=== PATIENT | female | born 1960 | race Caucasian/White ===

== ENCOUNTER 2020-03-21 19:56 | Inpatient (IN) | payer OTHER ==
[~2020-03-21] VITALS: Ht 160 cm; Wt 112.0 kg
[2020-03-21 22:00] VITALS: BP 140/80
[2020-03-22] MEDS ORDERED: PAIN RELIEF325 MG PO (00:30)
[2020-03-22] MEDS ORDERED: FLORANEX TABLE1 EACH PO (00:31)
[2020-03-22] MEDS ORDERED: NORVASC5 M1 PO (00:32)
[2020-03-22] MEDS ORDERED: BUSPIRONE HCL10 MG PO (00:32)
[2020-03-22] MEDS ORDERED: CARAFATE1 GM (00:34)
[2020-03-22] MEDS ORDERED: DORYX MPC120 MG PO (00:36)
[2020-03-22] MEDS ORDERED: DULOXETINE HCL60 MG PO (00:37)
[2020-03-22] MEDS ORDERED: LASIX 40 MG TAB40 MG (00:37)
[2020-03-22] MEDS ORDERED: LEVO-T100 MCG PO (00:38)
[2020-03-22] MEDS ORDERED: KLOR-CON 10 ER10 MEQ PO (00:39)
[2020-03-22] MEDS ORDERED: [UNRECOGNIZED DRUG - OTHER] PO (00:40)
[2020-03-22] MEDS ORDERED: SALONPAS1 EACH (00:40)
[2020-03-22] MEDS ORDERED: NORCO 5-325 TA1 EAC1 PO (00:41)
[2020-03-22] MEDS ORDERED: PHENERGAN 25 MG25 MG PO (00:43)
[2020-03-22] MEDS ORDERED: AMBIEN CR12.5 MG PO (00:44)
[2020-03-22] MEDS ORDERED: CARVEDILOL12.5 MG PO (01:15)
--- NOTE | 2020-03-22 02:32 | NUR ---
PATIENT CAME TO [facility] FROM IN [place], [place]. SHE ARRIVED BY EMS AMBULANCE AND WAS SCREENED FOR COVID 19 THRU OUR ED. SHE ARRIVED BY STRETCHER TO [facility] UNIT AT 2019. PATIENT TRANSFERRED ON FOOT FROM STRETCHER TO THE BED. PATIENT WAS ORIENTED TO ROOM AND VITAL SIGNS AND ASSESSMENT OBTAINED WELL CONSENTS SIGNED. PATIENT HAS MEDICARE/MEDICAID FOR INSURANCE. SHE IS A/0X4. SHE IS A 59 Y/O FEMALE THAT IS WELL GROOMED. SHE ARRIVED IN DISPOSABLE SCRUBS FROM HOSPITAL. PT PRESENTS TO US WITH SI. SHE STATES SHE HAS BEEN OBSESSING OVER THE COVID 19 VIRUS AND SO FEARFUL AND AFRAID TO GET IT. SHE HAS NOT BEEN EATING WELL FOR PAST MONTH AND IS AFRAID TO LEAVE HER HOME. HER BOYFRIEND RECENTLY BROKE UP WITH HER BUT REMAINS IN HER LIFE TO HELP SUPPORT HER THRU THIS TIME. I DID ALLOW HER TO CALL HIM TO LET HIM KNOW SHE WAS HERE. SHE ASKED ME TO CALL HIM AND GIVE HIM THE CODE SO HE CAN GET INFORMATION AND TALK WITH HER. PATIENT IS ALERT. SHE WAS CRYING AND HAD FEARFUL LOOK OF SCARE ON HER FACE WHEN SHE ARRIVED. SHE DID CALM DOWN I CALMLY SPOKE WITH HER AND LET HER KNOW THAT WE ARE HERE TO HELP HER THRU THIS TIME AND KEEP HER SAFE. SHE SAT ON THE SIDE OF THE BED DURING ASSESSMENT AND WAS RUBBING HER FACE UP AND DOWN WITH HER HANDS AT TIMES AND/OR WRINGING HER HANDS WE SPOKE. CLEAR SIGNS OF ANXIETY. PATIENT STATES SHE HAD BEEN LIVING IN AN ASSISTED LIVING FACILITY IN [place] A LITTLE OVER A YEAR AGO. SHE STATES SHE FELT SAFE THERE. SHE SAID SHE IS UNABLE TO LIVE ON HER OWN AND IS ON DISABILITY. SHE SAYS SHE IS NOT GOOD AT TAKING HER MEDS CORRECTLY. SHE GETS IMPULSIVE AT TIMES AND OVER TAKES THEM. SHE STATES THAT THRU HER FEAR OF COVID19 THAT SHE HAS BEEN UNABLE TO SLEEP. SHE STATES SHE FEELS LIKE SHE IS GOING TO SNAP IF SHE DOESN'T GET SOME SLEEP. SHE DECIDED TO TAKE HER AMBIAN IN THE MORNING AND THE NIGHT TO SEE IF THIS WOULD HELP HER SLEEP. SHE DID THIS FOR A WEEK AND STATES SHE TOOK A TOTAL OF 30 PILLS. SHE STATES IT DID NOT HELP HER SLEEP BUT DID CAUSE HER VISUAL HALLUCINATIONS WHICH SCARED HER. [facility]- AN ADMIT. SHE WAS D/C'D AND RETURNED AGAIN TODAY, THE BECAUSE SHE FELT LIKE SHE WAS GOING TO HARM HERSELF. SHE STATES THAT HER GOAL IS TO BE ABLE TO STAY IN AN ASSISTED LIVING OR FACILITY THAT DOSES OUT HER MEDS TO HER. SHE DOES SEEM TO HAVE A DEPENDENT PERSONALITY. SHE STATES WHEN SHE WAS IN [place] SHE STARTED DATING RELATIONSHIP WITH QIAN HERE IN [place]. THEY HAD BEEN LIFELONG FRIENDS. HE HAD HER COUSIN AND HER COUSIN HAD AND THIS IS WHEN THEY GOT TOGETHER. HE TOLD HER RECENTLY THAT HE IS UNABLE TO HELP HER AND HAS CHANGED THE RELATIONSHIP STATUS. PATIENT AMBULATES WITH A CANE. SHE HAS HAD MULTIPLE SURGERIES ON HER KNEES WHICH WERE REPAIRED AND THEN GREW MRSA FROM THE REPAIRS. SHE HAS SCARS ON BOTH KNEES FROM SURGERIES. SHE DOES HAVE KNEE PAIN. PT HAS SCAR DOWN STERNUM FROM MITRAL VALVE REPAIR IN 2016 IN WHICH IVF FILTER WAS PLACED. PATIENT HAS HISTORY OF HTN, HYPOTHYROIDISM, DIVERTICULITIS/ULCER. PT HAS HAD PSYCH HX OF ANXIETY, DEPRESSION, AND SUICIDAL ATTEMPT WITH KLONOPIN OD IN 2009. PATIENT IS OBESE. SHE IS CONTINENT OF BOWEL AND BLADDER. SHE WEARS DEPENDS. NO UTI S/S OF FREQUENCY, URGENCY, OR BURNING ON URINATION OR BLOOD IN URINE. PATIENT HAD DIARHEA FOR LAST 2 DAYS. SHE HAS NOT BEEN EATING WELL AND MAKING POOR FOOD CHOICES. PATIENT HAS EDEMA 2+ IN LEGS AND FEET. SHE STATES HER LOWER LEGS AND ANKLES HAVE ALWAYS BEEN BIG. SHE HAS ACTIVE BOWEL SOUNDS ALL 4 QUADS OF ABDOMEN, ABDOMEN SOFT/NONTENDER. HEART SOUNDS ARE REGULAR S1,S2. PATIENT HAS MULTIPLE BRUISES ON BILATERAL ARMS FROM IV ATTEMPTS AT PREVIOUS HOSPITAL. SHE HAS SMALL TATTOOS ON LEFT HAND AND LEFT KNEE. SKIN IS DRY AND INTACT. PATIENT HAS UPPER AND LOWER DENTURES. NO GLASSES, NO HEARING AIDS. PATIENT'S BELONGINGS AT NURSE STATION TO INVENTORY. PATIENT IS ALLERGIC TO FLAGYL WITH N/V REACTION. PATIENT WAS GIVEN NEW ONE TIME ORDER OF SEROQUEL 50MG PO TO HELP HER SLEEP TONIGHT. SHE REFUSED ANY OFFERINGS OF FOOD TONIGHT BUT DID REQUEST ICEWATER WHICH WAS OBTAINED FOR HER. PATIENT STATES SHE DOES NOT WISH TO HURT HERSELF. SHE JUST WANTS SLEEP. SHE HAS CALMED AND IS COOPERATIVE. SHE SIGNED HER CONSENTS VOLUNTEERILY. FREQUENT ROUNDING TO CHECK ON PATIENT STATUS. SHE DENIES SI/HI/AVH AT THIS TIME. WILL CONTINUE TO MONITOR.
[2020-03-22 08:21] VITALS: BP 144/84
--- NOTE | 2020-03-22 10:19 | NUR ---
Alert and orientated X4. States she took extra Ambien d/t insomnia and also took methamphetamine in her tea prior to admission. Denies SI/HI at this time. Refusing to come to dining room for breakfast and group initially stating her mind is all mixed up and going round and round. Informed that behavior would get her placed on room lockout. Did come to day room for breakfast and activities and was appropriate. Seems anxious at times and at other times is calm and interactive. Breath sounds clear. Regular HR auscultated. Color pink with brisk capillary refill and palpable peripheral pulses. Independent with voiding. Active bowel sounds over large, soft rounded abdomen. States last BM was yesterday. Ambulates with regular, steady gait with cane. Ate a few bites of breakfast and was compliant with meds.
--- NOTE | 2020-03-22 17:12 | NUR ---
LEO and Dr quijano met with pt . LEO coompleted the intake assessment and TP. Pt described abusing prescriptions drugs and drinking meth. Pt wants to live in [place] or [facility] in [place]. She would like to be close to her friends in [place]. Pt [place].
[2020-03-22 19:35] VITALS: BP 99/77
--- NOTE | 2020-03-22 23:55 | NUR ---
Care of patient assumed at 1915. Patient is lying in bed. pleasant upon approach. Reports ongoing insomnia which has her depressed. denies any pain. Reports having racing thoughts and VH when she tries to sleep. Denies any current hallucinations. Denies current SI/HI. HS reg, BS active x 4, LS CTA. Patient does call for help when confused male peer enters her room. Does well to recognize that the peer is confused and there is no malign intent. Complliant with HS meds.
[2020-03-23 06:00] LABS: CALCIUM 8.7 mg/dL (8.5-10.1); CREATININE 1.1 mg/dL (0.6-1.0); POTASSIUM 4.2 mmol/L (3.5-5.1)
[2020-03-23 07:53] VITALS: BP 121/76
--- NOTE | 2020-03-23 10:36 | NUR ---
PATIENT WAS IN BED WHEN CARE ASSUMED THIS MORNING. WHEN AWOKEN, SHE CAME OUT FOR BREAKFAST, APPETITE FAIR, "MY APPETITE IS BETTER TODAY" SHE STATES SHE HASN'T BEEN EATING WELL SINCE SHE "TOOK LOTS OF AMBEIN AND OTHER MEDICINES". LCTA IN ALL LOBES, BS+X4, ABD SOFT, NON-TENDER TO TOUCH. PATIENT TOOK ALL MEDICATION WHOLE WITHOUT DIFFICULTY. SHE DENIES SUICIDAL/HOMICIDAL IDEATION, SHE RATED BOTH DEPRESSION/ANXIETY 8/10. PATIENT DENIES AUDITORY/VISUAL HALLUCINATION, SHE DENIES HAVING PHYSICAL PAIN. PATIENT STATES SHE IS WORRIED BECAUSE HER FAMILY DOES NOT WANT HER ANYMORE, "THEY WANT ME TO GO TO ASSISTED LIVING". MOOD IS DEPRESSED, AFFECT IS ANXIOUS. PATIENT CURRENTLY IN BED RESTING. NO SIGN OF ACUTE DISTRESS NOTED AT THIS TIME, WILL MONITOR FOR SAFETY.
--- NOTE | 2020-03-23 12:53 | NUR ---
Sw sent referrals to the following [facility], [facility], [facility], and [facility] for possible placement
--- NOTE | 2020-03-23 19:21 | NUR ---
Care of patient assumed at 1915. Patient is sitting in the day room. Complains of a headache 4/10. APAP given and pain reduced to 2/10 after 30 minutes. Patient reports still being depressed r/t not getting enough sleep. Denies SI/HI. Says anxiety is "not too bad" but is visibly anxious. Talks on the phone for a long period, then receives HS meds. Retires to bed shortly after.
[2020-03-23 20:00] VITALS: BP 131/76
--- NOTE | 2020-03-23 22:28 | H ---
[facility] [place] [place] [address] HISTORY AND PHYSICAL Name: MADDY BYERS Room #: 524B-B ADM IN M.R.#: [id number] Admission: 03/21/20 Attend Phys: Ismael Motta DO Discharge: Date of : 56 Report #: [id number] THIS REPORT FOR: cc: ROBIN - No family physician/PCP FAM - No family physician/PCP Ismael Motta DO ~ CC: Ismael Motta [facility] physician/PCP DATE OF SERVICE: 03/21/2020 INPATIENT PSYCHIATRIC EVALUATION ATTENDING PHYSICIAN: Ismael Motta DO MOLD SANDER: Ismael Dickey MD REASON FOR ADMISSION: Suicidal ideation with plan to overdose, recent and intentional overdose on 30 tablets of Ambien, where she was admitted on March 19, discharged on March 20 at [facility]. SOURCES OF INFORMATION: [facility] Health screening, records from the [facility], interview with the patient, chart review from [facility]. HISTORY OF PRESENT ILLNESS: This is a 59-year-old obese female who was transferred from the [facility]. She presented there on the morning of March 21 with suicidal ideation. From multiple sources, the patient presented to the ED with suicidal ideation with plan and intent to overdose. She stated, "I just want to go and I want everything to be over." She reported the only reason she has not followed through with the suicide plan today is she did not want her boyfriend to find her . The patient has been living in approximately 2 months in [place], [place] with a 74-year-old male. Prior to this, she had lived for 16 months in an assisted living facility in [place]. Her duration of residence in [place] was 12 years. As stated already she was discharged from the medical floor at [facility] on March 20 after being admitted due to the Ambien overdose, where she had become delirious. The patient had a previous suicide attempt via taking 50 tablets of clonazepam in 2009. She reports that her current crisis is different than the break in 2009. She acknowledged to experience auditory and visual hallucinations. She reports using methamphetamine after she ran out of the Ambien. She reports being hyperfocused on COVID-19 issues and believing that people are out to get her. She admitted to meth use on March 17. CURRENT MEDICATIONS: That were at [facility] were acetaminophen, acidophilus, Ambien, amlodipine, Bactrim, buspirone, Carafate, carvedilol, [facility] [address] [place] [address] HISTORY AND PHYSICAL Name: MADDY BYERS Room #: [facility] ADM IN M.R.#: [id number] Admission: 03/21/20 Attend Phys: Ismael Motta DO Discharge: Date of : 56 Report #: [id number] doxycycline, duloxetine, Lasix, levothyroxine, [place] 5/325, potassium chloride, promethazine, Salonpas patch, Theratrum vitamin. ALLERGIES: FLAGYL causes nausea, vomiting. ADDITIONAL INFORMATION: She reports psychiatric review of systems, depression, lasting 2 weeks. She reports prominent anhedonia, ideation, she wanted to take all the pills she has, which are maintenance drugs. She states she sees 2 primary care physicians in [place], [place]. She denies domestic abuse. Denies unexpected weight loss of over 20 pounds in the last 6 months. Denies recent falls. LABORATORY DATA: From the ER, urinalysis was grossly negative except for 1+ bacteria, 1+ leukocytes, 1+ blood, rare squamous cells. CBC done on March 21, white count 7.7, H and H 14.7 and 45.7, platelet count 206. Sodium 142 and potassium 3.3, improved to 3.5 after replacement. Chloride 105, bicarbonate 24, BUN 17, creatinine 1.2, albumin 3.4, total protein 7.8, calcium 8.8, total bilirubin 0.6, alkaline phosphatase 162, ALT 30, AST 26. UDS was positive for benzodiazepines and methamphetamine. On interview today, educational history reports associate's degree. She reports being raised in [place]. SOCIAL HISTORY: She reports and once. She has 2 children in her early 40s son and daughter which have no relationship with her. She denies criminal justice history. Denied legal problems. Denies history of service. She reports on her past drug abuse history. Denies smoking. Denies alcohol. Reports abuse of prescription pain killers, use of cocaine in the past. MENTAL STATUS EXAMINATION: This is a well-developed, disheveled, obese female, appearing stated age. Attention fair. Concentration fair. The patient remarks, "I keep thinking about things, I cannot stay focused." Some psychomotor agitation. Denied psychomotor retardation. Denied suicidal intent. Endorsed morbid thinking. Denied homicidal intent or plan. Denied auditory, visual, or tactile hallucinations. Memory not formally tested today on purpose. Interestingly, the patient does discuss having a DCN number being enrolled in [place] Medicaid, so there is some suggestion that she is looking for Haldol. TSH 1.71, vitamin B12 level 670. PAST MEDICAL HISTORY: Includes coronary artery disease. She has had a valve replacement with subsequent MRSA infection, it is about 2-1/2 years ago. She has had bilateral knee arthroplasty with subsequent MRSA infection. She states she has "spacers," history of osteoarthritis, history of hypokalemia. [facility] [address] [place] [address] HISTORY AND PHYSICAL Name: MADDY BYERS Room #: 524B-B ADM IN M.R.#: [id number] Admission: 03/21/20 Attend Phys: Ismael Motta DO Discharge: Date of : 56 Report #: [id number] REVIEW OF SYSTEMS: CONSTITUTIONAL: Denies fever, chills, or change in appetite. HENT: Denies congestion, headache, or dizziness. RESPIRATORY: Denies cough, orthopnea, or shortness of breath. CARDIOVASCULAR: Denies chest pain, edema or palpitations. GASTROINTESTINAL: Denies abdominal pain, constipation or diarrhea. GENITOURINARY: Denies dysuria, frequency or hematuria. MUSCULOSKELETAL: Denies muscle pain, joint pain, or joint swelling. SKIN: Denies rash, bruising, or abrasion. NEURO/PSYCH: Denies weakness or tingling. ENDOCRINE: Denies flushing, intolerance to cold or heat. HEME/LYMPH: Denies easy bruising, anemia, or blood clots. FORMULATION: A 59-year-old obese female presenting status post intentional overdose, unclear if it was suicide versus just trying to take pain away. The patient currently is in relationship strife with her boyfriend. DIAGNOSES: At this time, unspecified depression, substance use disorder for methamphetamines, moderate degree. Numerous medical comorbidities, obesity, coronary artery disease, osteoarthritis, status post surgical wound infection. PLAN: Evaluate, stabilize, and obtain collateral. With regard to medications, we will start risperidone 0.5 mg p.o. b.i.d. for clarity of thought. She is on potassium chloride, increased to 40 mEq from 20 mEq b.i.d. by hospitalist. We will start clonazepam scheduled 0.5 mg at 9 a.m., 3 p.m. and 9:00 p.m. temporarily to relieve her anxiety. I did give her a one-time 1 mg a day vitamin. 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 BuSpar increased from 10 b.i.d. to 10 three times a day, this was a home med. Amlodipine 5 mg p.o. daily for hypertension with parameters, Lasix 40 mg p.o. twice per day at 8 a.m. and 3 p.m. and Coreg 12.5 mg b.i.d. with parameters, levothyroxine 100 mcg p.o. daily, lidocaine patch. ESTIMATED LENGTH OF STAY: 10-14 days. STRENGTHS: She is insured. WEAKNESSES: Lack of support. She is out of her normal geography, some dependent personality features. At least 60 minutes spent on this case. <ELECTRONICALLY SIGNED> By: Ismael Motta DO 03/23/20 2228 1520 [id number] Ismael Motta DO /nt
[2020-03-24 08:53] VITALS: BP 103/71
--- NOTE | 2020-03-24 09:34 | EKG ---
[facility] [place] [address] [place] [address] ELECTROCARDIOGRAM REPORT Name: MADDY BYERS Room #: 524B-B ADM IN M.R.#: [id number] Admission: 03/21/20 Attend Phys: Ismael Motta DO Discharge: Date of : 56 Report #: [id number] THIS REPORT FOR: cc: FAM - No family physician/PCP FAM - No family physician/PCP Earl Gomez MD ~ THIS REPORT FOR: //name// [facility] Test Date: 2020-03-23 Test Time: 17:48:11 Pat Name: MADDY BYERS Department: Room: 52 B Gender: F Motel Manager: Sha LINN : 1960 Requested By: Ismael Motta Order Number: [id number] MD: Earl Gomez Measurements Intervals [employer] Rate: 86 P: 45 SD: 126 QRS: -50 QRSD: 91 T: 126 QT: 364 QTc: 436 Interpretive Statements Sinus rhythm Left atrial enlargement Abnormal R-wave progression, late transition Inferior infarct, old Lateral leads are also involved No previous ECG available for comparison Electronically Signed On 03-24-2020 9:32:11 CDT by Earl Gomez [email or web address] <ELECTRONICALLY SIGNED> By: Earl Gomez MD 03/24/20 0932 1748 1748 Earl Gomez MD /EPI
[2020-03-24 12:59] VITALS: BP 103/71
--- NOTE | 2020-03-24 15:28 | NUR ---
PATIENT HAS BEEN UP, AND OUT ON THE UNIT, AMBULATE WITH ASSIST OF ROLLER WALKER, GAIT STEADY. PATIENT IS ALERT, AND ORIENTED X 3-4, ABLE TO MAKE NEED KNOWN. PATIENT TAKES ALL MEDICATION WHOLE WITHOUT DIFFICULTY. SHE IS EATING MEALS, AND DRINKNG FLUID WELL. PATIENT DENIES SUCIDAL/HOMICIDAL IDEATION. SHE RATED BOTH DEPRESSION/ANXIETY 7/10. AFFECT IS SAD, MOOD DEPRESSED. PATIENT DENIES AUDITORY/ VISUAL HALLUCINATION. NO C/O DIARRHEA TODAY, PATIENT INTERACTING WELL WITH SELECT PEER. NO SIGN OF ACUTE DISTRESS NOTED AT THIS TIME, WILL MONITOR FOR SAFETY.
--- NOTE | 2020-03-24 17:30 | NUR ---
Patient attended group. Group was focused on identifying strengths. Patient was engaged but had to be redirected often. She was focused on talking about a lost relationship due to her relapse.
--- NOTE | 2020-03-24 19:15 | NUR ---
Care of patient assumed at 1914. Patient is in day room watching a movie with peers. A/O x 4. Says that today has been a better day and that she kept herself busy watching movies. Denies SI/HI. Denies pain. HS reg, BS active x 4, LS CTA with diminished LL. Compliant with HS meds. About 20 minutes after HS meds, patient c/o nervousness and palpitations. After reviewing meds, honing machine set up operator tool METAL MOULDER is contacted and informed of symptoms. METAL MOULDER will review meds with patient in the morning and make changes as needed. At 2129 patient approaches this nurse with c/o headache and requests APAP. Given.
[2020-03-24 20:07] VITALS: BP 126/81
[2020-03-25 07:46] VITALS: BP 141/87
[2020-03-25 08:58] VITALS: BP 141/87
--- NOTE | 2020-03-25 11:39 | NUR ---
Assumed care 0700. Denies pain/SI/HI/AH/VH. She worked a couple of jiMoondoaw puzzles, was offered word search puzzles and paper for journaling which were declined. She reports male friend moved her here and besides him she has no one she knows. She said her over medication episode frightened her male friend. He will help her but not be as close as she wants. She says she will not try to overmedicate again.
--- NOTE | 2020-03-25 13:50 | NUR ---
Assumed care at 0700. She voiced no complaints. Since about 1300 she has c/o anxiety partially exacerbated by another patient loud verbally non-stop. Patient was given her Buspar and allowed to sit with staff in the group room to be away from the noise. When asked about SI she stated that if she could not sleep and had access to her pills she would would take them all over again. When other alternatives were explored such as relaxation techniques/soothing music she said those types of things do not work. Says she will try to play cards later.
--- NOTE | 2020-03-25 14:37 | NUR ---
Pt asked SW to assist/allow to get minutes added to her cellphone. She explained if minutes prior to adding new minutes, she will have to pay an additional fee to get new minutes added. SW allowed her to take care of this situation and explained she will have to put her cellphone back into storage until she is discharged. Patient expressed an understanding and agreed to these terms.
--- NOTE | 2020-03-25 16:17 | NUR ---
Patient attended group. Group was focused on calming the body. Patient was initially engaged but became upset about a personal situation. She became tearful and left the group stating these skills don't help her.
--- NOTE | 2020-03-25 18:55 | NUR ---
sAYS SHE IS NOT SLEEPING WHEN RIPPER OPERATOR COMES TO CHECK ON HER. She was encouraged to wave at night staff when they come into room and she is awake. She claims her thoughts race about winning the lottery then goes into a variety of thoughts that keep her awake.
[2020-03-25 20:27] VITALS: BP 127/76
--- NOTE | 2020-03-26 03:05 | NUR ---
ASSESSMENT: PT REMAIN ALERT AND ORIENT TIMES 3, STILL CLAIM RANDOM THOUGHTS OF COVID, BUT STATE THAT THIS IS THE FIRST NIGHT THAT SHE HAS BEEN ABLE TO GET SOME REST AND FOR HER THOUGHTS TO SLOW DOWN RACING IN HER HEAD. FIRST DOSE OF ZYPREXIA GIVEN TONIGHT WITH MINIMAL RESULTS PER PT. PT WAS INFORMED THAT IT MAY TAKE SEVERAL DOSES TO GET HER TO FEEL LIKE THE MED IS EFFECTIVE. PT DID WALK AROUND THE CORRIDOR PRIOR TO LAYING DOWN FOR THE NIGHT. DID APPEAR TO BE ASLEEP DURING THIS RN'S ROUNDING. VSS, AFEBRILE. SLOW PROGRESS TOWARDS DC GOALS, WILL CONTINUE TO MONITOR.
[2020-03-26 07:27] VITALS: BP 104/65
--- NOTE | 2020-03-26 09:46 | NUR ---
Assess due to high BMI 41.5=extreme class III obesity. Admit to [facility] for SI. Eating 100% of meals. On vitamin, however also appears to have vitamin D deficiency 13.7-recommend supplementation. 2 different wts 241 vs 234 lb over 3 days? -will follow trends but otherwise low nutrition risk.
--- NOTE | 2020-03-26 10:13 | NUR ---
Assumed care 0700. Stated she slept better that she had less racing thoughts last night. She appeared calmer this AM than yesterday. Her facial expression was more relaxed/pleasant while in RT group doing exercises. She initiates conversation with select peers.
--- NOTE | 2020-03-26 10:38 | NUR ---
Patient wonders if she will be put in a [place] or out on the street or in a facility and where/when. She stated she is grateful for a more peaceful sleep. Her goal is to attend groups, get involved in unit activities and stay engaged. She denies SI/HI/AH/VH.
--- NOTE | 2020-03-26 12:20 | NUR ---
SW called all of the [facility] referrals and they all reported that they were still considering this pt and would call back today with an answer.
--- NOTE | 2020-03-26 14:37 | NUR ---
SW sent referral to [facility], [facility] and [facility]
--- NOTE | 2020-03-26 16:24 | NUR ---
Jaxson called back and reported that he owuld need some bank statements to consider pt at [facility]
--- NOTE | 2020-03-26 16:25 | NUR ---
Jaylen phone number [phone]. [facility] called and stated they had received this referal last month and declined it then. But would be willing to reconsider.
[2020-03-26 19:30] VITALS: BP 119/61
[2020-03-26 19:31] VITALS: BP 119/61
--- NOTE | 2020-03-27 00:25 | NUR ---
PATIENT HAVING DIFFICULTY WITH SLEEPING TONIGHT. SHE WAS GIVEN HER TRAZADONE 50MG ORDERED AND OLANZAPINE 5MG PO AT HS. PATIENT HAD C/O BILATERAL KNEE PAIN AT AROUND 2330 AND WAS GIVEN TYLENOL 650MG WITH DECREASED PAIN DOWN TO 4 IN 30 MINUTES. PATIENT RESTLESS. PATIENT IS WORRIED ABOUT HER RELATIONSHIP WITH HER PAST BOYFRIEND. SHE WANTS TO STAY IN A RELATIONSHIP WITH HIM AND HE JUST WANTS TO BE FRIENDS. WE DISCUSSED THE FACT THAT HE DOES CARE FOR HER AND IS BEING A GOOD SUPPORT FOR HER AT THIS TIME BUT WE WON'T KNOW IF HE WILL WANT A RELATIONSHIP WITH MORE INTIMACY IN THE FUTURE. ENCOURAGED HER TO CONCENTRATE ON HERSELF GETTING BETTER AND GETTING HERSELF IN A STABLE HOME THAT CAN HELP HER WITH HER MEDS ETC. PATIENT AGREED. SHE HAS BEEN CALM AND COMPLIANT. NO CRYING TONIGHT. DENIES SI, HI, AVH. PATIENT DID HAVE AN HS SNACK AT HS. CONTINUING TO MONITOR.
--- NOTE | 2020-03-27 00:52 | NUR ---
PATIENT RESTLESS AND UNABLE TO SLEEP. NEW ORDER FROM DR MILLER FOR OLANZAPINE 5MG PO ONE TIME. PATIENT TOOK MED WHOLE WITH WATER. WILL CONTINUE TO MONITOR.
[2020-03-27 07:53] VITALS: BP 95/44
--- NOTE | 2020-03-27 10:40 | NUR ---
Up ambulating in unit with regular gait. Alert and orientated X4. States no concerns this AM and will be out to breakfast at 0745. States she slept much better after 5 mg Olanzapine last night without racing thoughts. Calm, asking appropriate questions. Denies SI/HI. Breath sounds clear t/o. Reg HR auscultated. Color pink with brisk capillary refill and palpable peripheral pulses. Independent with voiding. Active bowel sounds over soft, rounded abdomen. Compliant with meds.
--- NOTE | 2020-03-27 11:25 | NUR ---
LEO followed up with Yareli [facility], cla[facility] and [facility] [place] and they are all still considering. [facility] has no female beds and [facility] declined because pt cannot do stairs. [place] denied. Leo then LEO sent new referrals to [facility], Malgorzata Norfolk [facility], Malgorzata [facility] of [place], Malgorzata hebronaugusto of [place] and [facility].
[2020-03-27 19:47] VITALS: BP 110/62
--- NOTE | 2020-03-27 20:02 | NUR ---
Assumed care of patient at change of shift. She was sitting in day room conversing tearfully with another nurse. She was inquiring about medications at bedtime and had concerns regarding insomnia. HS medications conveyed to patient. No signs or symptoms of pain or distress noted.
--- NOTE | 2020-03-27 21:27 | NUR ---
2200 Pt. c/o bilat knee pain 04/04. Tylenol 650 mg given po.
--- NOTE | 2020-03-27 21:47 | NUR ---
I spoke with Jessica flaherty. 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 She continued sharing about how she had taking to many ambien. She is scared that "I am not good enough and nobody will want me. (referring to going to assisted living). She stated that she was very anxious and about ready to crawl out of her skin. She has racing thoughts. We discussed ways for her to practice thought stoppers. She stated that she prays and that she repeats to herself, "what is the worst that can happen." I inquired if she had seen a Singeing Torch Operator during her stay. She stated "no." I asked if she wanted to see a Singeing Torch Operator. She stated "yes" Jessica is [employer]. Before I left the room, she said the Lord's Prayer together. I spoke to her nurse to see if Jessica could have a prn. See nursing notes for details.
--- NOTE | 2020-03-27 22:34 | NUR ---
2144 Pt. tearful and states that she is extremely anxious. PRN Zyprexa 2.5 mg. given.
[2020-03-28 00:42] VITALS: BP 110/62
[2020-03-28 07:47] VITALS: BP 94/55
[2020-03-28 19:41] VITALS: BP 109/60
[2020-03-28 23:00] VITALS: BP 109/60
--- NOTE | 2020-03-29 02:01 | NUR ---
Assumed care of patient this pm shift. Patient sitting in the mileu at a table watching tv. Patient argued briefly with another patient and was encouraged to find a peaceful alternative. Patient states that she has difficulty sleeping and that she used sleeping medications in abundance. Patient given trazadone at night for sleep. Patient states that she gets high anxiety. Patient requested that the nurse try to get her something stronger for sleep. RN called the nurse practioner and recieved an order to increase her sleep medication to 150mg of trazadone, a one time order. Patient denies hi/si. Patient did take tylenol for knee pain. Patients assessment shows clear breath sounds, active bowel sounds, and s1 s2 heard with auscultation. Around midnight patient stated that she was having high anxiety and difficulty taking a deep breath. Vital signs were taken and were within normal limits. Patient was given ondansetron for nausea. Patient has been up off and on asking about sleep medication. Patient encouraged to try to lay down and close her eyes to sleep. We will continue to monitor patient per hospital protocol.
[2020-03-29 07:57] VITALS: BP 133/74
[2020-03-29 08:40] VITALS: BP 133/74
--- NOTE | 2020-03-29 09:17 | NUR ---
PT STATED SHE WANTED TYLENOL THIS AM AND ZYPREXIA PRN. PT STATED SHE HAS TROUBLE SLEEPING AND UP AT NIGHT. PT HAS AROUND 4 HOURS OF SLEEP LAST NIGHT. PT STATED HER LEGS ARE GETTING MORE SWOLLEN, NON-PITTING EDEMA NOTED TO LEGS BILATERAL. PT USES WALKER TO AMBULATE PT STATED HER KNEES ARE GETTING WORSE AND SHE STATED SHE IS GAINING WEIGHT FROM THE MEDICATION.
--- NOTE | 2020-03-29 13:27 | NUR ---
Leo sent new referals to [facility]- they denied, and Tanisha Wood- are only PPEricka Shane then called and spoke with Neva at [facility] and they are willing to consider this pt for placement. LEO sent the referral and spoke with pt about this possibility. Pt was hopeful this would work out. D/C is expected 04/03
--- NOTE | 2020-03-29 15:02 | NUR ---
DR. MILLER CHANGED HER ZYREXIA TO TWICE A DAY TIMED. PT STILL COMPLAINING OF GAINING WT AND HER FEET ARE PITTING. DIDN'T NOTICE WITH ASSESSMENT SHE HAS PITTING TO PEDAL.
--- NOTE | 2020-03-29 17:49 | NUR ---
ADM TYLENOL 325MG 2 TABS PO FOR PAIN TO KNEES OF 6 ON 1-10 SCALE. ADM OLANZAPINE 2.5MG PO FOR INCREASED ANXIETY. SHE IS WANTING OLANZIPINE INCREASED OR SOMETHING FOR HS.
[2020-03-29 20:24] VITALS: BP 110/71
--- NOTE | 2020-03-30 05:49 | NUR ---
Assumed care on 03/29/20 @ 19:15, in the [facility][1], seated in a chair at a table. cooperated with assessment, quite anxious, after scheduled medications given, including Ativan 0.5mg po @ HS, patient reported her anxiety to be much reduced. Tylenol 650 given for knee pain of 03/04 @ 23:55. Follow up assessment patient noted to be sleeping. Bed in low position. Will continue to follow up with 12 minute rounding for patient safety.
[2020-03-30 06:55] VITALS: BP 126/62
--- NOTE | 2020-03-30 09:00 | NUR ---
RT Progress Note- Jessica has attended all recreation therapy groups offered to her. She displays some anxiety but is easily calmed through conversation. She enjoys groups that focus on coping skills and conversations about her future.
[2020-03-30 12:41] VITALS: BP 126/62
--- NOTE | 2020-03-30 14:09 | NUR ---
1350 RESUMMED CARE FROM OVERNIGHT SHIFT THIS AM, PATIENT IN DAY ROOM GETTING COFFEE. PATIENT ATE BREAKFAST AND TOOK MEDICATION WITHOUT INCIDENCE. PATIENTS ABDOMEN SOFT ROUND BOWEL SOUNDS PRESENT LUNGS CLEAR. PATIENT DENIES SI/HI/AH/VH AT PRESENT. PATIENT COOPERATIVE CALM PATIENT LIKES TO SIT IN RECLINER IN DAY ROOM. PATIENT INTERACTS WITH SOME OF THE OTHER PATIENTS IN GROUPS. WILL CONTINUE TO MONITOR PATIENT FOR SAFETY AND BEHAVIORS.
--- NOTE | 2020-03-30 14:33 | NUR ---
SW spoke with Neva at [facility] and provided pt's Medicaid reward letter via fax.
--- NOTE | 2020-03-30 14:38 | NUR ---
Robert at [facility] reported that they should be able to accept this pt on Thursday with a 10:30 am d/c. SW reported this to pt and staff.
[2020-03-30 19:16] VITALS: BP 92/44
[2020-03-30 22:26] VITALS: BP 92/44
--- NOTE | 2020-03-30 23:18 | NUR ---
RESUMMED CARE FROM DAY SHIFT THIS PM, PATIENT IN RECLINER IN DAY ROOM TALKING WITH ANOTHER PATIENT. PATIENTS ABDOMEN SOFT ROUND BOWEL SOUNDS PRESENT LUNGS CLEAR. PATIENT IS COOPERATIVE CALM PATIENT DENIES SI/HI/AH/VH AT PRESENT. PATIENT DID ASK FOR TYLENOL WITH HER NIGHT MEDICATION FOR HER KNEES. SHE HAS HAD TWO KNEE REPLACEMENTS AND STATES THEY ACHE AT NIGHT. PATIENT TOOK NIGHT MEDICATION WITHOUT INCIDENCE. WILL CONTINUE TO MONITOR PATIENT FOR SAFETY AND BEHAVIORS.
--- NOTE | 2020-03-31 02:47 | NUR ---
ASSUMED CARE ON 03/31/20 @ 0000. IN BED EYES CLOSED, RESPIRATIONS EVEN AND UNLABORED BED IN LOW POSITION, WILL CONTINUE 12 MINUTE ROUNDING FOR PATIENT SAFETY.
[2020-03-31 08:05] VITALS: BP 137/72
--- NOTE | 2020-03-31 09:54 | NUR ---
I FOUND MADDY IN THE DAY ROOM @ 7AM SITTING TALKING TO ANOTHER PT. MADDY SAID HER GOAL IS TO BE DISCHARGED ON . TO THE HOME HER JBOSS DEVELOPER TOLDER ABOUT. ASKED ABOUT KNEE PAIN AND HER RATED IT AT 6. TYLENOL ORDERED WAS GIVEN FOR THIS. MEDICATIONS GIVEN AND TAKEN WELL. LUNGS WERE CLEAR X2, PEDAL PULSE WAS REGULAR, EDEMA ON BOTH FEET+1.AND COMENTED ON HAD A GOOD NIGHTS SLEEP. PT. HAD A BM TODAY AND IS AMBULATING WITH WALKER IN HALWAY. NO OTHER COMPLAINTS VOICED AT THIS TIME.
[2020-03-31 16:02] VITALS: BP 131/72
--- NOTE | 2020-03-31 16:15 | NUR ---
Jessica has been siting in the day room with legs elevated. Dr sommers and attended pt. Pt refused the wraps clarence Dr Siegel ordered. Pt stated she was anxious thinking about not knowing were she's going after discharge,. She spoke to her boyfriend and was told he needed to move on, but would still be friends with her. She said she felt a little relife just knowing were she stands there. I asked her if she nwould make a list with the positive an one side and then the negative on the other side. She was not recipitve, saying that she does not like to journal.
[2020-03-31 19:00] VITALS: BP 101/53
--- NOTE | 2020-03-31 19:27 | NUR ---
Care of patient assumed at 191. Patient is on the ohone in the day room. Once finished with her call, patient is cooperative with assessment. A/O x 4. Relates anxiety r/t upcoming placement. Rates anxiety 06/04. Patient is encouraged to utilize coping skills she has learned. Patient reports that pain meds were only minimally effective. HS, LS, BS all WNL. Compliant with HS meds. Retired to bed shortly after.
[2020-04-01 07:32] VITALS: BP 88/42
[2020-04-01 07:38] VITALS: BP 88/42
[2020-04-01 08:26] LABS: CALCIUM 8.4 mg/dL (8.5-10.1); CREATININE 1.1 mg/dL (0.6-1.0); MAGNESIUM 2.4 mg/dL (1.8-2.4); POTASSIUM 3.7 mmol/L (3.5-5.1)
--- NOTE | 2020-04-01 14:26 | NUR ---
MADDY WAS IN THE DAY ROOM THIS AM WHEN I CAME ON DUTY. i ASKED HOW SHE WAS FEEELING AND SHE SAID SHE GOT A REALLY NIGHTS SLEEP. mEDICATIONS TAKEN ORDERED. MADDY WALKED IN [address] AND SAT IN DAY ROOM WITH FEET ELEVATED. PT ALSO PARTICIPATED IN GROUPS PER THERE OCCURANCE. tYLENAL GIVEN FOR KNEE PAINRATING PAIN @ A 5 , ON REASSESMENT AFTER SHE RATED THE PAIN @3. MADDY IS IN DAY ROOM WATCHING TV. LUNGS WERE LEAR X2 THIS AM, PEDAL PULSE WAS STRONG tHE EDEMA IS GRADUALLY GETING LESS , BUT THERE IS STILL PITTING EDEMA.
[2020-04-01 19:52] VITALS: BP 146/70
[2020-04-01 20:00] VITALS: BP 146/70
--- NOTE | 2020-04-01 23:25 | NUR ---
PATIENT WAS UP IN DINING ROOM TONIGHT. SHE SAT IN RECLINER AFTER WALKING AND ELEVATED HER FEET. PT HAS TRACE EDEMA IN LEFT FOOT. PATIENT HAD TYLENOL 650MG PO BEFORE BED FOR KNEE ACHES. SCORE 3 TO 5 OUT OF 10. PATIENT WAS HAPPY, ANXIOUS AT FIRST WORRYING ABOUT HOW SHE WAS GOING TO SLEEP TONIGHT, BUT CALMED DOWN ABOUT IT AFTER TALKING WITH HER 1:1 AND REDIRECTING CONVERSATION. WE DID GO OVER BREATHING EXERCISES AND TALKED OF WAYS TO CALM HERSELF ON HER OWN BY CHANGING HER THINKING WHEN THE NEGATIVE THOUGHTS COME IN. PATIENT HAD HS SNACK. SHE HAS BEEN COOPERATIVE AND TOOK HER HS MEDS WHOLE WITH WATER. VSS. WILL CONTINUE TO MONITOR. PATIENT IN BED SLEEPING AT THIS TIME.
[2020-04-02 07:38] VITALS: BP 97/50
--- NOTE | 2020-04-02 10:02 | NUR ---
ANXIOUS FACIAL EXPRESSION DURING 1;1 WITH THIS RN. MULTIPLE NEGTIVE COMMENTS WHEN SPEAKING ABOUT DC TO SNF TOMORROW "I GUESS I WON'T BE ABLE TO GET ICE TEA AGAIN OR HAVE A PIZZA AGAIN-I REALLY LOVED THAT STUFF"REQUESTED AND RECEIVED ZYPREXA 2.5MG PO PRN AT 1000 FOR REPORTED SEVERE ANXIETY RATED AN 8 ON 1010 SCALE.
--- NOTE | 2020-04-02 16:53 | NUR ---
SW spoke with patient this morning regarding her concerns about going to an assisted living facility. Patient appeared to be only slightly less anxious.
[2020-04-02 19:34] VITALS: BP 102/56
--- NOTE | 2020-04-02 20:12 | NUR ---
PATIENT SITTING UP IN DINING ROOM WITH FEET ELEVATED IN RECLINER CHAIR. SHE HAD STRAWBERRY ICECREAM FOR A SNACK. SHE IS WATCHING TV AND SITTING WITH ANOTHER FEMALE PATIENT QUIETLY. SHE APPEARS ANXIOUS. SHE IS WORRIED ABOUT BEING ABLE TO SLEEP WELL TONIGHT. SHE IS ANXIOUS ABOUT HER MOVE TO A ASSISTED TOMORROW AT 1030. SHE IS CONCERNED SHE MAY NEVER HAVE VISITORS D/T THE COVID19 GUIDELINES. VISITED WITH PATIENT AND TRIED TO ENCOURAGE HER AND SHOW HER POSITIVE THINGS SHE CAN LOOK FOR AT THE [facility]. TOLD HER SHE WON'T BE WITHOUT VISITORS FOREVER, JUST UNTIL THINGS WITH COVID GET UNDER CONTROL. REMINDED HER THAT PEOPLE CAN STILL DROP OFF THINGS FOR HER AND SHE CAN GET MAIL AND PHONE CALLS. PATIENT IS NOT HAPPY TONIGHT. SHE IS TIRED. PT DID HAVE BM TODAY. HER VSS AND NO EDEMA IN BLE'S. LUNGS ARE CTA AND HEART RATE REGULAR. PULSE RATE IS AT 78 AND BP IS 102/56. I LET PATIENT KNOW THAT HER ROOM MATE HAS BEEN MOVED TO ANOTHER ROOM SO SHE SHOULD BE ABLE TO SLEEP WITHOUT INTERRUPTIONS TONIGHT. SHE WAS HAPPY ABOUT THIS. SHE WORRIES ABOUT HER EXBOYFRIEND RELATIONSHIP AND TRIES TO GUESS IF HE WILL GET BACK WITH HER. I LISTENED TO HER CONCERNS AND REMINDED HER THAT NO ONE KNOWS THE FUTURE SO IS IMPORTANT TO CONTINUE WORKING ON HERSELF TO GET BETTER AND NOT TRY AND SECOND GUESS THINGS. PATIENT DENIES SI/HI/AVH. SHE IS A/0X4. WILL CONTINUE TO MONITOR.
[2020-04-02 22:24] VITALS: BP 102/56
--- NOTE | 2020-04-03 05:18 | NUR ---
PATIENT HAS SLEPT THRU THE NIGHT AND APPEARS TO BE RESTING COMFORTABLY. SHE HAS NOT BEEN UP TONIGHT. RESPIRATIONS ARE EVEN AND UNLABORED. BED IN LOW POSITION AND ROUTINE ROUNDS FOR ASSESSMENT OF STATUS AND SAFETY OF PATIENT.
[2020-04-03 07:42] VITALS: BP 118/54
[2020-04-03 09:07] VITALS: BP 118/54
--- NOTE | 2020-04-03 09:28 | NUR ---
Reji called [facility] and spoke with brown to confirm the d/c today at 10:30 am. Sw faxed COVID 19 and TB results with current meds list. REJI made packet and left it on the chart. Sw will fax the d/c summary and orders and leave them on the chart too.
--- NOTE | 2020-04-03 09:31 | NUR ---
Reji set up transportation for 10:30 am with [employer]
[2020-04-03] MEDS ORDERED: DOXYCYCLINE HYC50 MG PO (10:21)
[2020-04-03] MEDS ORDERED: CARVEDILOL12.5 MG PO (10:22)
[2020-04-03] MEDS ORDERED: NORVASC5 MG PO (10:23)
[2020-04-03] MEDS ORDERED: OLANZAPINE2.5 MG PO ×2 (10:24→10:25)
[2020-04-03] MEDS ORDERED: TRAZODONE HCL50 MG PO (10:24)
[2020-04-03] MEDS ORDERED: ESCITALOPRAM OX10 MG PO (10:24)
[2020-04-03] MEDS ORDERED: ZYPREXA 5 MG TAB5 M1 PO (10:25)
[2020-04-03] MEDS ORDERED: BUSPIRONE HCL10 MG PO (10:26)
[2020-04-03] MEDS ORDERED: LASIX 40 MG TAB40 M1 PO (10:26)
[2020-04-03] MEDS ORDERED: K-DUR 20 MEQ T20 MEQ PO (10:26)
[2020-04-03] MEDS ORDERED: VITAMIN D325 MCG PO (10:27)
[2020-04-03] MEDS ORDERED: SYNTHROID100 MC1 PO (10:27)
--- NOTE | 2020-04-03 11:15 | NUR ---
REPORT CALLED TO [facility] NURSING STAFF [place] -PERSONAL BELONGINGS GATHERED AND CHECKED AGAINST ADMIT INVENTORY-SECURITY CONTACTED REGARDING BELONGINGS IN SAFE. DC INSTRUCTIONS AND RX REVIEWED WITH PATIENT SHE STATES UNDERSTANDING AND DENIES QUESTIONS. REPORTS FEELING ANXIOUS AT TIME OF DC -ZYPREXA 2.5MGPO PRN FOR ANXIETY RATES A 9 ON 1-10 SCALE AT APPROX. 0935. PT DC'D VIA WC VIA WC VAN ACCOMPNIED BY NURSING STAFF AT APPROX. 1035.DENIES SI/SH/HI AT TIME OF DC.
--- NOTE | 2020-04-04 13:43 | D ---
[facility] [place] [address] DISCHARGE SUMMARY Name: MADDY BYERS Room #: 524B-B DIS IN M.R.#: [id number] Admission: 03/21/20 Attend Phys: Ismael Motta DO Discharge: 04/03/20 Date of : 56 Report #: [id number] THIS REPORT FOR: cc: ROBIN - Jade family physician/PCP ROBIN - No family physician/PCP Ismael Motta DO ~ THIS REPORT FOR: //name// CC: Ismael Motta FAM physician/PCP DATE OF SERVICE: 04/03/2020 INPATIENT PSYCHIATRIC DISCHARGE SUMMARY ATTENDING PHYSICIAN: Ismael Motta DO. MELTER OPERATOR AT THE TIME OF DISCHARGE: Ismael Dickey M.D. DISCHARGE DIAGNOSES: 1. Psychosis, resolved major depressive disorder, recurrent, severe degree, improved. 2. Methamphetamine use disorder, mild. 3. Medical comorbidities, coronary artery disease, asymptomatic this admission, hypertension, peripheral edema. The patient refused JULIANNE hose or Jamir wrap, was taking Lasix, osteoarthritis, minimal symptomatology. She does have a history of spacers in her knees and is on chronic doxycycline therapy to prevent recurrence apparently. DISCHARGE DIET: Going to be regular. The patient does have a BMI of 43.8, so recommend for her long-term health pursuing weight loss. DISCHARGE PLAN: Discharged to the [facility] for long-term care. It is really not RCF. DISCHARGE MEDICATIONS: Doxycycline hyclate 100 mg p.o. b.i.d. for MRSA prevention, carvedilol 12.5 mg p.o. b.i.d. before meals for hypertension, amlodipine besylate 5 mg p.o. daily for hypertension, escitalopram 5 mg p.o. daily for depression and anxiety. Trazodone 75 mg p.o. at bedtime for sleep, this should be converted to p.r.n. after a couple of weeks; olanzapine 7.5 mg p.o. at 2200 for mood stabilization augmentation of antidepressant, olanzapine 2.5 mg at 0900 and 1300 for mood stabilization, anxiety or antianxiety properties, buspirone she takes 10 mg p.o. at 7:00 a.m. and 2:00 p.m., potassium chloride for supplementation for the 60 mg of Lasix she takes at 0800 and 1500 for hypertension and edema, levothyroxine 100 mcg p.o. daily for hypothyroidism, cholecalciferol 5000 International Units p.o. daily for vitamin D deficiency, [address] [address] DISCHARGE SUMMARY Name: MADDY BYERS Room #: [facility] IN M.R.#: [id number] Admission: 03/21/20 Attend Phys: Ismael Motta, Discharge: 04/03/20 Date of : 56 Report #: [id number] multivitamin p.o. daily and she has this lidocaine Salonpas that is q. 12 p.r.n. knee pain which is patch that can be utilized as well at nursing facility. LABORATORY DATA: Significant laboratories this admission. Chemistries on 04/01/2020, sodium 140, potassium 3.7, chloride 105, bicarbonate 27, anion gap 8, BUN 30, creatinine 1.1, estimated GFR 50, glucose 97, calcium 8.4, magnesium 2.4. B12 level was 670, which is acceptable. Vitamin D was low at 13.7, hence the 5000 units daily cholecalciferol. She did receive the COVID-19 PCR, which was negative and her TSH on 03/22/2020 was 1.719. REASON FOR PSYCHIATRIC ADMISSION: Back in the end of February is as follows: The patient was received from [facility]. She had been screened thereby [facility], which is the [facility]. Apparently, she had been to the hospital the day prior for Ambien overdose. She returned the next day stating she was suicidal. Apparently, 2 months prior she had moved from [place] after being engaged to a sherly named Larry. The relationship deteriorated. The patient became despondent and suicidal. She also admitted to meth use, which she has in the past on 03/17/2020. HOSPITAL COURSE: The patient was admitted to Geriatric Psychiatry Unit. Symptoms of paranoia reported. External stimuli resolved quickly with initiation of olanzapine. The patient's anxiety was prominent. I initially did give her a benzodiazepine. I explained to her that this would not be continued. It was a little hard with transition. The patient did get benefit from the olanzapine and her sleep normalized in the 6-8 hour range. In general, she is eating well. She does display some immature coping skills, but she highly participated to both the group and milieu during her stay. At the time of discharge, the patient was not suicidal or homicidal. PHYSICAL EXAMINATION: VITAL SIGNS: Temperature 36.8, pulse 78, respirations 16, BP 118/54. MUSCULOSKELETAL: Uses a walker, kyphotic, morbidly obese. MENTAL STATUS EXAMINATION: This is a well-developed, well-nourished, morbidly obese female appearing stated age. Attention fair. Concentration fair. Speech is normal rate, volume and tone. Thought process is linear and goal directed. Thought content, worried about her new placement though I think this is still a relatively normal degree. No psychomotor agitation. No psychomotor retardation. Denied SI or HI. Denied auditory, visual, or tactile hallucinations. Mood was anxious, congruent. Insight limited. Judgment fair. Fund of knowledge, no greater than average. PROGNOSIS: For this patient is fair to guarded and will depend on her keeping [facility] [address] [place] [address] DISCHARGE SUMMARY Name: MADDY BYERS Room #: 524B-B DIS IN M.R.#: [id number] Admission: 03/21/20 Attend Phys: Ismael Motta DO Discharge: 04/03/20 Date of : 56 Report #: [id number] socially busy. She has been in psychiatric treatment. General medical, psychiatric care will be provided by the [facility]. <ELECTRONICALLY SIGNED> By: Ismael Motta DO 04/04/20 1343 [id number] Ismael Motta DO /nt
== END 2020-04-03 10:45 | DRG 881 ==
LOC: SBH
PROVIDERS: Hospitalist; Internal Medicine; ADMIT Psychiatry & Neurology Psychiatry; ATTEND Psychiatry & Neurology Psychiatry
DX: F32.9 Major depressive disorder, single episode, unspecified (principal); R45.851 Suicidal ideations; Z68.41 Body mass index [BMI] 40.0-44.9, adult; F29 Unspecified psychosis not due to a substance or known physiological condition; I10 Essential (primary) hypertension; I25.10 Atherosclerotic heart disease of native coronary artery without angina pectoris; M19.90 Unspecified osteoarthritis, unspecified site; F41.9 Anxiety disorder, unspecified; E87.6 Hypokalemia; E66.9 Obesity, unspecified; F19.10 Other psychoactive substance abuse, uncomplicated; Z79.899 Other long term (current) drug therapy; Z88.1 Allergy status to other antibiotic agents; Z95.0 Presence of cardiac pacemaker; Z03.818 Encounter for observation for suspected exposure to other biological agents ruled out
CPT/HCPCS: 10880